=== PATIENT | male | born 1955 ===

== ENCOUNTER 2019-10-28 10:10 | Day surgery (SDC) | payer BC ==
[~2019-10-28] VITALS: Ht 193 cm; Wt 160.4 kg
[2019-10-28 10:43] VITALS: BP 131/100; PULSE 75; TEMP 98.3
[2019-10-28] MEDS ORDERED: PRINIVIL40 MG PO (10:46)
[2019-10-28] MEDS ORDERED: LIPITOR 10MG10 MG PO (10:47)
[2019-10-28] MEDS ORDERED: GLUCOPHAGE500 MG/TAB PO (10:47)
[2019-10-28] MEDS ORDERED: TRIAMT/HCTZ CAP 37. PO (10:49)
[2019-10-28] MEDS ORDERED: MOTRIN 200200 MG/TAB PO (10:49)
[2019-10-28] MEDS ORDERED: PRILOSEC 20MG20 MG PO (12:56)
[2019-10-28 13:10] VITALS: BP 144/90; PULSE 97
[2019-10-28 13:15] VITALS: BP 133/93; PULSE 85
[2019-10-28 13:30] VITALS: BP 138/78; PULSE 77
[2019-10-28 13:45] VITALS: BP 131/76; PULSE 94
== END 2019-10-28 14:13 | disposition home or self-care (01) ==
LOC: SDCO 10:10
DX: D12.3 Benign neoplasm of transverse colon (principal); D12.5 Benign neoplasm of sigmoid colon; K57.30 Diverticulosis of large intestine without perforation or abscess without bleeding; K22.2 Esophageal obstruction; K64.0 First degree hemorrhoids; K21.0 Gastro-esophageal reflux disease with esophagitis; K29.30 Chronic superficial gastritis without bleeding; K44.9 Diaphragmatic hernia without obstruction or gangrene; E11.9 Type 2 diabetes mellitus without complications; I10 Essential (primary) hypertension; E78.5 Hyperlipidemia, unspecified; Z96.659 Presence of unspecified artificial knee joint; Z96.0 Presence of urogenital implants; Z79.84 Long term (current) use of oral hypoglycemic drugs
CPT/HCPCS: C1726; J2250; J3010

== ENCOUNTER 2023-10-25 07:05 | Day surgery (SDC) | payer BC, MEDICARE ==
[~2023-10-25] VITALS: Ht 193 cm; Wt 158.0 kg
[2023-10-25] VITALS (15 sets, daily range): BP systolic 125–165; BP diastolic 78–99; PULSE 62–83; TEMP 97.5–98.5
[~2023-10-25 07:05] MED LIST: GLUCOPHAGE500 MG/TAB PO; LIPITOR 10MG10 MG PO; MOTRIN 200200 MG/TAB PO; PRILOSEC 20MG20 MG PO; PRINIVIL40 MG PO; TRIAMT/HCTZ CAP 37. PO
[2023-10-25 07:48] LABS: HEMATOCRIT 51.6 % (42.0-52.0); HEMOGLOBIN 17.1 g/dl (13.5-18.0); MEAN CELL VOLUME 94 fl (80.0-100.0); MEAN CORPUSCULAR HEMOGLOBIN 31 pg (27-31); MEAN CORPUSCULAR HGB CONC 33 g/dl (33.0-37.0); MEAN PLATELET VOLUME 10.6 fl (7.4-10.4); PLATELET COUNT 179 K/mm3 (130-400); RED BLOOD COUNT 5.49 M/mm3 (4.20-5.60); REDCELL DISTRIBUTION WIDTH-CV 12.4 % (11.5-14.5)
[2023-10-25 08:08] LABS: CALCIUM 8.9 mg/dL (8.4-10.2); CREATININE, serum 0.93 mg/dL (0.72-1.25); POTASSIUM 4.3 mmol/L (3.5-4.5)
[2023-10-25] MEDS ORDERED: ZEBETA 5MG5 MG PO (08:23)
[2023-10-25] MEDS ORDERED: GLUCOPHAGE1000 MG PO (08:24)
[2023-10-25] MEDS ORDERED: FARXIGA5 PO (08:24)
[2023-10-25] MEDS ORDERED: MOBIC15 MG PO (08:25)
[2023-10-25 08:26] LABS: PROTHROMBIN TIME 11.4 SECONDS (9.7-12.8)
[2023-10-25] MEDS ORDERED: LIPITOR 10MG10 MG PO (08:27)
[2023-10-25] MEDS ORDERED: ENTRESTO 49 MG1 EACH PO (08:27)
--- NOTE | 2023-10-25 09:35 | NUR ---
Refer to [facility] Report for procedural sedation/notes
--- NOTE | 2023-10-25 11:15 | NUR ---
Pt to rm 318 - bedside assessment performed with KAYLIN Zamora. Vital signs initiated and results reviewed - incision site reviewed and stable - all questions answered from pt/RN/family. Left arm in sling
--- NOTE | 2023-10-25 11:35 | NUR ---
PATIENT CAME TO UNIT APPROXIMATELY 1115. PATIENT ALERT AND ORIENTED X4. PATIENT AND DAUGHTER AT BEDSIDE. PATIENT HAS A LEFT UPPER CHEST INCISION, IT IS COVERED BY GAUZE DRESSING AND TAPE.NO DRAINAGE OBSERVED. PATIENT DENIES PAIN ONLY REPORTS MILD PRESSURE TO INCITION SITE.(ICE BAG ON IT).PATIENT ON ROOM AIR AND O2SAT FLUCTUATING 89-92. PATIENT VERBALIZES 89 IS USUALLY CONSIDERED NORMAL VALUE FOR HIM. PATIENT INSTRUCTED TO REPORT ANY SOB, WEAKNESS, DIZZINESS.PATIENT CALL LIGHT WITHIN REACH. BED AT LOWEST POSITON.
--- NOTE | 2023-10-25 18:01 | NUR ---
PATIENT'S MEDICATIONS WERE NOT RESUMED. CALLED CARDIOLOGY OFFICED I WAS TRANSFERED TO CARDIOLOGY DR WHO TOLD ME TO CALL CARDIOLOGY DR HAND HIDE STRETCHER. THEN I CALLED DR HAND HIDE STRETCHER- DR. VALDERRAMA AND HE SAID MEDICATION SHOULD BE RESUMED BUT I WAS UNABLE TO RESUME IT BECAUSE IT REQUIRES A DR.TO RESUME PER [employer] MESSAGE WHEN TRYING TO RESUME. THEN CALLED JANNIE AGAIN TO LET HIM KNOW IT REQUIRES A DR. HE SAID HE COULD NOT DO IT BECAUSE HE DID NOT KNOW HOW TO DO IT. TO CALL NIGHT HOSPITALIST.
--- NOTE | 2023-10-25 21:47 | NUR ---
Patient assessed around 1999. Alert and oriented, and able to make needs known. Reported pain to left chest, and given scheduled Mobic, as well as PRN Acetaminophen as requested. Dressing to PM/Defib site has minimal amount of drainage to gauze, no active bleeding noted. Sling to left arm to help minimize movement for tonight. Ice to site. Patient reports he wears oxygen at 4 L/min via NC at night. Set up for patient, RT notified, and order for oxygen placed. Patient voices no further questions, needs, or concerns at this time. In recliner with call light within reach.
[2023-10-26 00:09] VITALS: BP_SYST 165
[2023-10-26 03:25] VITALS: BP 148/93; PULSE 81; TEMP 98
[2023-10-26 04:05] VITALS: BP_SYST 148
--- NOTE | 2023-10-26 06:24 | NUR ---
Patient has voiced no complaints of pain or discomfort this shift since receiving HS Acetaminophen. Voices no questions, needs, or concerns at this time. In bed with call light within reach.
[2023-10-26 08:00] VITALS: BP 149/89; PULSE 81; TEMP 98.2
--- NOTE | 2023-10-26 09:04 | NUR ---
PT SITTING IN CHAIR UPON ENTERING. ASSESSMENT DONE, MEDS GIVEN PER ORDER. PT ON 2L NASAL CANNULA AND DENIES PAIN OR SHORTNESS OF BREATH AT THIS TIME. BILATERAL HANDS HAVE TRACE EDEMA. IV TO LEFT FOREARM FLUSHES WELL WITHOUT COMPLICATION. LEFT ARM SLING REMOVED. LEFT CHEST PACEMAKER SITE COVERED WITH GAUZE AND TAPE. GAUZE HAS A SMALL AMOUNT OF DRIED BLOOD ON IT. DRESSING REMOVED AND STERISTRIPS INTACT UNDERNEATH. PT REPORT AN "ACHY TIGHT" FEELING TO SITE. SMALL AMOUNT OF SWELLING AROUND SITE, NO OR INCREASED REDNESS DRAINAGE NOTED. PT SET UP FOR BREAKFAST AND DENIES NEEDS AT THIS TIME
[2023-10-26 09:12] VITALS: BP_SYST 149
--- NOTE | 2023-10-26 09:14 | NUR ---
DEVICE DOWNLOAD COMPLETE
--- NOTE | 2023-10-26 09:18 | NUR ---
Initial visit; Patient and his thanked Special Service Officer for looking in on patient and offering God's blessings and a Happy, Healthy New Year.
--- NOTE | 2023-10-26 10:32 | NUR ---
ZEBETA 5MG GIVEN PER ORDER. PT AND AT BEDSIDE AND EDUCATED ON THIS. PT GIVEN SANDWICH TRAY AND DENIES NEEDS AT THIS TIME
[2023-10-26] MEDS ORDERED: ZEBETA10 MG PO (10:46)
[2023-10-26] MEDS ORDERED: CEPHALEXIN500 M1 PO (10:46)
--- NOTE | 2023-10-26 11:18 | NUR ---
JOEL RN CALLED AND NOTIFIED THIS NURSE THAT DISCHARGE ORDERS ARE IN AND THAT SOMEONE WILL BE IN TO SEE THE PT AND HELP SET UP PACEMAKER/DEFIB BEAU ON PHONE, PT UPDATED. IV IN LEFT FOREARM REMOVED, CATHETER TIP INTACT. TELE REMOVED AND PT NOTIFIED HE COULD GET DRESSED. SITE TO LEFT CHEST WITH STERI STRIPS AND CLEAN DRY INTACT.
--- NOTE | 2023-10-26 12:13 | NUR ---
PT DRESSED IN PERSONAL CLOTHES, AT BEDSIDE. PT GIVEN DISCHARGE INSTRUCTIONS, ALL QUESTIONS ANSWERED AND BOTH VERBALIZED UNDERSTANDING. SHARMILA FROM [facility] IN ROOM TO EDUCATE PT ON PACEMAKER/DEFIB BEAU ON PHONE. PT TOLD TO USE CALL LIGHT WHEN FINISH TO BE ESCORTED OUT, PT VERBALIZED UNDERSTANDING.
--- NOTE | 2023-10-26 12:33 | NUR ---
PT DENIES QUESTIONS AFTER SPEAKING WITH SHARMILA. PTS BELONGINGS BROUGHT TO PERSONAL VEHICLE BY . PT TRANSFERRED TO PERSONAL VEHICLE VIA WHEELCHIAR BY THIS NURSE. PT DENIES NEEDS AT THIS TIME
== END 2023-10-26 12:37 | disposition home or self-care (01) ==
LOC: COL.CAR 07:05 → MEDICAL 11:20 → COL.CAR 10-26 12:37
PROVIDERS: Internal Medicine Cardiovascular Disease
DX: I42.0 Dilated cardiomyopathy (principal); I11.0 Hypertensive heart disease with heart failure; I50.20 Unspecified systolic (congestive) heart failure; G47.33 Obstructive sleep apnea (adult) (pediatric); E78.2 Mixed hyperlipidemia; Z79.899 Other long term (current) drug therapy
CPT/HCPCS: OP; C1721; C1777; C1894; C1898; J0665; J0690; J2250; J3010; J7030; Q9967